=== PATIENT | female | born 1980 | race African-American/Black ===

== ENCOUNTER 2017-04-20 16:55 | Observation (INO) | payer OTHER ==
[~2017-04-20] VITALS: Ht 165.1 cm; Wt 103.4 kg
[2017-04-20] MEDS ORDERED: PREN-88 PO (17:17)
[2017-04-20] MEDS ORDERED: LACTATED RINGERS 1,000 ML IV SCH (18:15)
[2017-04-20 18:38] LABS: BASOPHILS % 0.5 % (0.0-2.0); EOSINOPHILS % 0.7 % (0.0-5.0); HEMATOCRIT. 35.4 % (36.0-48.0); LYMPHOCYTES % 22.5 % (20.0-50.0); MEAN CORPUSCULAR HEMOGLOBIN 30.6 pg (28.0-32.0); MEAN CORPUSCULAR VOLUME 90.2 fL (81.0-99.0); MEAN PLATELET VOLUME 9.7 fl (7.4-10.4); MONOCYTES % 6.6 % (2.0-8.0); NEUTROPHILS % 69.7 % (40.0-76.0); PLATELET 200 x1000/uL (130-400); RED BLOOD CELL COUNT 3.93 mill/uL (4.2-5.4)
[2017-04-20 18:45] LABS: CHLORIDE 104 mEq/L (98-107)
[2017-04-20 18:48] LABS: CARBON DIOXIDE 23 mEq/L (21-32)
[2017-04-20] MEDS ORDERED: DEXT IV SCH (19:30)
[2017-04-20] MEDS ORDERED: NACL KCL IV SCH (19:30)
== END 2017-04-20 19:45 | disposition left against medical advice (07) ==
LOC: L&D 16:55
PROVIDERS: ADMIT Obstetrics & Gynecology; ATTEND Obstetrics & Gynecology
DX: O36.8120 Decreased fetal movements, second trimester, not applicable or unspecified (principal); Z3A.27 27 weeks gestation of pregnancy
CPT/HCPCS: 36415; 80053; 85025; 96360; 96361; 99281; G0378; J7120